=== PATIENT | female | born 1975 | race Caucasian/White ===

== ENCOUNTER 2020-01-27 14:38 | Emergency (ER) | payer OTHER ==
[~2020-01-27] VITALS: Ht 170.2 cm; Wt 93.0 kg
[~2020-01-27 14:38] MED LIST: CALC600T56 PO; CEPH250C16 PO; FERR325E14 PO; PREN-234 PO; TAM75
--- NOTE | 2020-01-27 14:52 | NUR ---
handed urine cup to pt for sample. admits to mild intermittent cramping type pain with spotting advance to vaginal bleeding
--- NOTE | 2020-01-27 15:34 | NUR ---
ULTRASOUND AT BEDSIDE
[2020-01-27 15:49] LABS: APPEARANCE,URINE CLEAR (CLEAR); BILIRUBIN,URINE NEGATIVE (NEGATIVE); BLOOD, URINE 2+ (NEGATIVE); COLOR,URINE YELLOW (YELLOW); LEUKOCYTE ESTERASE ,URINE NEGATIVE (NEGATIVE); NITRITE, URINE NEGATIVE (NEGATIVE); UGLUCOSE NEGATIVE (NEGATIVE)
[2020-01-27 15:56] LABS: RBC,URINE 11-20 (MOD) /HPF (0-5); WBC,URINE 0-5 /HPF (0-5)
[2020-01-27 16:00] LABS: BASOPHILS # (AUTO) 0.1 K/uL (0.00-0.22); BASOPHILS % (AUTO) 0.7 % (0.0-2.0); EOSINOPHILS # (AUTO) 0.2 K/uL (0-0.4); EOSINOPHILS % (AUTO) 2.1 % (0.0-4.0); HEMATOCRIT 37.9 % (36-48); HEMOGLOBIN 12.2 g/dL (12.0-16.0); LYMPHOCYTES # (AUTO) 4.2 K/uL (2.5-16.5); LYMPHOCYTES % (AUTO) 37.5 % (20.5-51.1); MEAN CORPUSCULAR HEMOGLOBIN 24 pg (27-31); MEAN CORPUSCULAR HGB CONC 32 g/dL (33-37); MEAN CORPUSCULAR VOLUME 74.8 fL (80-94); MONOCYTES # (AUTO) 0.6 K/uL (0.8-1.0); MONOCYTES % (AUTO) 5.2 % (1.7-9.3); NEUTROPHILS # (AUTO) 6.1 K/uL (1.8-7.7); NEUTROPHILS % (AUTO) 54.5 % (42.2-75.2); PLATELET COUNT (AUTO) 237 K/uL (140-450); RED BLOOD CELL COUNT(AUTO) 5.07 MIL/uL (4.20-5.40); RED CELL DISTRIBUTION WIDTH 16.4 % (11.6-13.7); WHITE BLOOD COUNT (AUTO) 11.2 K/uL (4.8-10.8)
[2020-01-27 16:16] LABS: ALBUMIN 3.5 g/dL (3.4-5.0); CARBON DIOXIDE 23.6 mmol/L (21-32); CREATININE 0.8 mg/dL (0.6-1.3); POTASSIUM 3.6 mmol/L (3.5-5.1); TOTAL BILIRUBIN 0.4 mg/dL (0.0-1.0)
[2020-01-27 17:06] VITALS: BP 127/81
--- NOTE | 2020-01-27 17:06 | NUR ---
ULTRASOUND AND LABS PRINTED FOR PT TO F/U WITH HER ASSEMBLER SEMICONDUCTOR Patient discharged with v/s stable. Written and verbal after care instructions given and explained. Patient verbalized understanding. Ambulatory with steady gait. All questions addressed prior to discharge. Advised to follow up with PMD.
== END 2020-01-27 17:06 | disposition home or self-care (01) ==
LOC: MED 14:38
DX: O20.8 Other hemorrhage in early pregnancy (principal); Z3A.09 9 weeks gestation of pregnancy; Z79.899 Other long term (current) drug therapy
CPT/HCPCS: 36415; 76801; 80053; 81001; 84702; 85025; 99284; Q0092

== ENCOUNTER 2020-01-30 08:49 | Emergency (ER) | payer OTHER ==
[~2020-01-30] VITALS: Ht 157.5 cm; Wt 102.2 kg
[2020-01-30 08:54] VITALS: BP 143/85
--- NOTE | 2020-01-30 09:41 | NUR ---
# 16 FR Pringle catheter with 10 ml utilizing sterile technique. Immediate return of 4000 ml CLEAR urine noted. LEG BAG ATTACHED. Pt tolerated procedure WELL.
--- NOTE | 2020-01-30 09:41 | NUR ---
44 Y/O FEMALE PRESENTS TO ER WITH URINARY RETENTION. PT STATES SHE IS UNABLE TO URINATE, LAST URINATION WAS 3 DAYS AGO. PT IS 9 WEEKS AND STATES THIS HAS HAPPENED BEFORE, AND AN INDWELLING CATH WAS REQUIRED. PT REPORTS PAIN AT PUBIC REGION, 10/10 CRAMPING PAIN. DENIES ANY N/V/D, FEVER, SOB.
[2020-01-30] MEDS ORDERED: DOPPLER MC ONE (09:43)
[2020-01-30 10:25] VITALS: BP 143/85
--- NOTE | 2020-01-30 10:26 | NUR ---
Patient discharged with v/s stable. Written and verbal after care instructions given and explained. Patient verbalized understanding. Ambulatory with steady gait. All questions addressed prior to discharge. Advised to follow up with PMD.
== END 2020-01-30 10:26 | disposition home or self-care (01) ==
LOC: MED 08:49
DX: R33.9 Retention of urine, unspecified (principal); Z79.899 Other long term (current) drug therapy; Z46.6 Encounter for fitting and adjustment of urinary device
CPT/HCPCS: 51702; 81002; 99284

== ENCOUNTER 2020-02-09 17:11 | Emergency (ER) | payer OTHER ==
[~2020-02-09] VITALS: Ht 157.5 cm; Wt 100.5 kg
[2020-02-09 17:14] VITALS: BP 132/73
[2020-02-09 18:16] VITALS: BP 132/73
[2020-02-09 18:46] LABS: BASOPHILS # (AUTO) 0.1 K/uL (0.00-0.22); BASOPHILS % (AUTO) 0.6 % (0.0-2.0); EOSINOPHILS # (AUTO) 0.3 K/uL (0-0.4); EOSINOPHILS % (AUTO) 2.1 % (0.0-4.0); HEMOGLOBIN 12.4 g/dL (12.0-16.0); LYMPHOCYTES # (AUTO) 4.1 K/uL (2.5-16.5); LYMPHOCYTES % (AUTO) 32.4 % (20.5-51.1); MEAN CORPUSCULAR HEMOGLOBIN 24 pg (27-31); MEAN CORPUSCULAR HGB CONC 32 g/dL (33-37); MEAN CORPUSCULAR VOLUME 75.7 fL (80-94); MONOCYTES # (AUTO) 0.7 K/uL (0.8-1.0); MONOCYTES % (AUTO) 5.6 % (1.7-9.3); NEUTROPHILS # (AUTO) 7.4 K/uL (1.8-7.7); NEUTROPHILS % (AUTO) 59.3 % (42.2-75.2); PLATELET COUNT (AUTO) 224 K/uL (140-450); RED BLOOD CELL COUNT(AUTO) 5.16 MIL/uL (4.20-5.40); RED CELL DISTRIBUTION WIDTH 16.4 % (11.6-13.7); WHITE BLOOD COUNT (AUTO) 12.5 K/uL (4.8-10.8)
[2020-02-09 18:52] LABS: APPEARANCE,URINE CLEAR (CLEAR); COLOR,URINE YELLOW (YELLOW)
[2020-02-09 18:53] LABS: BILIRUBIN,URINE NEGATIVE (NEGATIVE); BLOOD, URINE NEGATIVE (NEGATIVE); LEUKOCYTE ESTERASE ,URINE 1+ (NEGATIVE); NITRITE, URINE POSITIVE (NEGATIVE); PH,URINE 5.5 (5.0-9.0); UGLUCOSE NEGATIVE (NEGATIVE)
[2020-02-09 18:53] LABS: ANION GAP 13.8 (8-16); CARBON DIOXIDE 25.4 mmol/L (21-32); CREATININE 0.8 mg/dL (0.6-1.3); POTASSIUM 3.2 mmol/L (3.5-5.1)
[2020-02-09 19:40] LABS: RBC,URINE 0-5 /HPF (0-5)
[2020-02-09] MEDS ORDERED: POTASSIUM CHLORIDE 10 MEQ TABER PO ONE (20:00)
[2020-02-09] MEDS ORDERED: POTASSIUM CHLORIDE 10 MEQ TABER PO STA (20:05)
== END 2020-02-09 21:18 | disposition home or self-care (01) ==
LOC: MED 17:11
DX: O20.8 Other hemorrhage in early pregnancy (principal); O98.811 Other maternal infectious and parasitic diseases complicating pregnancy, first trimester; R82.71 Bacteriuria; Z3A.10 10 weeks gestation of pregnancy; Z79.899 Other long term (current) drug therapy
CPT/HCPCS: 36415; 76817; 80048; 81001; 81025; 84702; 85025; 86900; 86901; 87086; 87110; 87299; 99284; Q0092

== ENCOUNTER 2020-02-15 01:22 | Inpatient (IN) | payer OTHER ==
[~2020-02-15] VITALS: Ht 157.5 cm; Wt 100.2 kg
[2020-02-15 01:28] VITALS: BP 141/90
--- NOTE | 2020-02-15 01:40 | NUR ---
PT TAKEN TO BED 1
[2020-02-15] MEDS ORDERED: NACL 0.9% 1,000 ML IV ONE (02:06)
--- NOTE | 2020-02-15 02:15 | NUR ---
H/L EST G18 ON PT LT AC. BLD DRAWN INCLUDING 2 BLD CULTURE , LACTIC, PINK TOP AND ON PROCESS TO SENT TO THE LAB.
[2020-02-15 02:38] LABS: BASOPHILS # (AUTO) 0.1 K/uL (0.00-0.22); BASOPHILS % (AUTO) 0.5 % (0.0-2.0); EOSINOPHILS # (AUTO) 0.2 K/uL (0-0.4); EOSINOPHILS % (AUTO) 1.9 % (0.0-4.0); HEMATOCRIT 38.2 % (36-48); HEMOGLOBIN 12.2 g/dL (12.0-16.0); LYMPHOCYTES # (AUTO) 4.2 K/uL (2.5-16.5); LYMPHOCYTES % (AUTO) 34.3 % (20.5-51.1); MEAN CORPUSCULAR HEMOGLOBIN 24 pg (27-31); MEAN CORPUSCULAR HGB CONC 32 g/dL (33-37); MEAN CORPUSCULAR VOLUME 76.3 fL (80-94); MONOCYTES # (AUTO) 0.6 K/uL (0.8-1.0); MONOCYTES % (AUTO) 4.8 % (1.7-9.3); NEUTROPHILS # (AUTO) 7.2 K/uL (1.8-7.7); NEUTROPHILS % (AUTO) 58.5 % (42.2-75.2); PLATELET COUNT (AUTO) 216 K/uL (140-450); RED BLOOD CELL COUNT(AUTO) 5.01 MIL/uL (4.20-5.40); RED CELL DISTRIBUTION WIDTH 16.7 % (11.6-13.7); WHITE BLOOD COUNT (AUTO) 12.2 K/uL (4.8-10.8)
--- NOTE | 2020-02-15 02:58 | NUR ---
PT WAS SEEN A FEW DAYS AGO FOR URINARY RETENTION HAD A KEARNS CATH PLACED. SHE HAS THIS PROBLEM WITH EVERY PREG IN THE EARLY MONTHS. SHE CURRENTLY HAS TWO DIFFERENT BACTERIAL STRAINS OF UTI'S THAT REQUIRE HER TO RECIEVE IV ANITBIOTICS. SHE RETURNED TONIGHT TO BE ADMITTED TO START RECIEVING THE IV THERAPY. PT DENIES ANY VAG BLEEDING, OR FOUL ODOR. PT AFEBRILE, NO N/V/D. PT ON BEDSIDE MONITOR. BED IN LOWEST POSITION AND SIDE RAIL UP X 1. NKA
[2020-02-15 03:01] LABS: ALBUMIN 3.7 g/dL (3.4-5.0); ANION GAP 16.3 (8-16); CARBON DIOXIDE 24.1 mmol/L (21-32); CREATININE 0.8 mg/dL (0.6-1.3); POTASSIUM 3.4 mmol/L (3.5-5.1); TOTAL BILIRUBIN 0.6 mg/dL (0.0-1.0)
--- NOTE | 2020-02-15 03:06 | NUR ---
URINE COLLECTED FROM LEG BAG AND TAKEN TO LAB
--- NOTE | 2020-02-15 03:15 | NUR ---
PT UP AND AMBULATED TO RESTROOM.
[2020-02-15 03:38] LABS: APPEARANCE,URINE CLEAR (CLEAR); BILIRUBIN,URINE NEGATIVE (NEGATIVE); BLOOD, URINE NEGATIVE (NEGATIVE); LEUKOCYTE ESTERASE ,URINE 1+ (NEGATIVE); NITRITE, URINE NEGATIVE (NEGATIVE); UGLUCOSE NEGATIVE (NEGATIVE)
[2020-02-15 04:07] LABS: COLOR,URINE STRAW (YELLOW)
[2020-02-15 04:09] LABS: RBC,URINE 0-5 /HPF (0-5)
--- NOTE | 2020-02-15 05:45 | NUR ---
PT RESTING QUIETLY, NO SIGNS OF DISTRESS. RESPIRATIONS REGULAR EVEN AND UNLABORED.
--- NOTE | 2020-02-15 06:56 | NUR ---
RECEIVED REPORT FROM MARU COLON .
--- NOTE | 2020-02-15 06:56 | NUR ---
report given to Mode MAHONEY
--- NOTE | 2020-02-15 07:20 | NUR ---
PT COMFORTABLE IN BED SIDE RAILS UP X1 AND LOCK AT LOWEST POSITION.
--- NOTE | 2020-02-15 07:40 | NUR ---
LYUBOV SPOKE TO ADMITTING DR REGARDING PT DIET . PT WAS PLACE IN REGULAR DIET.
--- NOTE | 2020-02-15 08:16 | NUR ---
PT AMBULATE RESTROOM WITH STEADY GAIT.
--- NOTE | 2020-02-15 08:25 | NUR ---
PT BACK FROM RESTROOM , AMBULATED BACK TO BED WITH STEADY GAIT.
--- NOTE | 2020-02-15 09:20 | NUR ---
RECEIVED BEDSIDE REPORT FROM ER NURSE REGARDING PT CONDITION AND PLAN OF CARE. PT IS CURRENTLY STABILIZED, IN NO S/S RESPIRATORY DISTRESS, NO COMPLAINTS OF PAIN. ALERT AND ORIENTED X 4, YI SPEAKING, AMBULATORY. RESPIRATIONS EVEN AND UNLABORED. SKIN INTACT, NO CYANOSIS PALLOR OR EDEMA NOTED, CAP REFILL < 3 SECONDS. S1S2 HEART SOUNDS AUSCULTATED. ABDOMEN IS ROUNDED PATIENT IS AOG 11 WEEKS. PATIENT HAS KEARNS CATHETER ATTACHED TO LEG BAG , SHE DRAINS HER LEG BAG HERSELF IN THE RESTROOM. VITAL SIGNS STABLE. ALL NEEDS MET, CALL LIGHT WITHIN REACH , WILL CONTINUE TO MONITOR.
--- NOTE | 2020-02-15 09:20 | NUR ---
Patient will be admitted to care of Dr arciniega. Admited to M/S. Will go to room 104B. Belongings list completed. Report to nury Fletcher.
--- NOTE | 2020-02-15 11:30 | NUR ---
ROUNDED ON PATIENT, PT IS STABILIZED, HAS NO NEEDS AT THIS TIME. PT IN NO S/S RESPIRATORY DISTRESS, DENIES ANY PAIN. ALL NEEDS MET, CALL LIGHT WITHIN REACH, WILL CONTINUE TO MONITOR.
[2020-02-15 12:00] VITALS: BP 112/61
--- NOTE | 2020-02-15 12:00 | NUR ---
UPON PATIENT ROUNDS, PATIENT SITTING UP IN BED, ALERT ORIENTED, IN NO S/S RESPIRATORY DISTRESS, NO COMPLAINTS OF PAIN. VITAL SIGNS STABLE. EATING LUNCH. ALL NEEDS MET, CALL LIGHT WITHIN REACH, WILL CONTINUE TO MONITOR.
--- NOTE | 2020-02-15 12:59 | NUR ---
SPOKE WITH LAB, THEY STATE THAT THE PATIENTS URINE CULTURE HAD ALREADY BEEN SUBMITTED AND IS BEING SENT TO [facility] AT THE MOMENT. NOTED AND WILL CONTINUE TO MONITOR PATIENT.
--- NOTE | 2020-02-15 15:55 | NUR ---
DR MEDRANO IN GAVE VERBAL ORDERS FOR ULTRASOUND OF ABDOMEN AND ALSO CONSULTS FOR DR STORY AND DR TAMICA JENKINS. HE STATES HE WILL PERSONALLY TALK TO THE DOCTORS. ORDERS NOTED AND CARRIED OUT. Addendum: 02/15/20 at 1600 by Chance Owens RN CORRECTION: US < 14 WEEKS
[2020-02-15 16:00] VITALS: BP 99/53
--- NOTE | 2020-02-15 16:16 | NUR ---
RACK PUNCHER CURRENTLY IN ROOM
--- NOTE | 2020-02-15 17:26 | NUR ---
ROUNDED ON PATIENT, REFILLED WATER. PER PATIENT REQUEST, CHANGED KEARNS CATHETER LEG BAG TO LARGER DRAINAGE BAG. GAVE INSTRUCTIONS TO ALWAYS LEAVE BELOW LEVEL OF BLADDER, TO NOT LET THERE BE ANY KINKS AND THAT THE URINE MUST ALWAYS BE DRAINING AND NOT STUCK IN TUBING. PATIENT VERBALIZED UNDERSTANDING. WILL CONTINUE TO MONITOR. ALL NEEDS MET, CALL LIGHT WITHIN REACH.
--- NOTE | 2020-02-15 19:10 | NUR ---
GAVE BEDSIDE REPORT REGARDING PT CONDITION AND PLAN OF CARE. PT IS STABILIZED RESTING COMFORTABLY IN BED, IN NO S/S RESPIRATORY DISTRESS, DENIES PAIN. ENDORSED TO SERVICE DEPARTMENT MANAGER NURSE REGARDING KEARNS CATHETER . VERBALIZED UNDERSTANDING
--- NOTE | 2020-02-15 19:30 | NUR ---
RECEIVED REPORT FROM DAY RN REGARDING THE PT FOR CONTINUITY OF CARE. PATIENT SITTING UPRIGHT ON THE BED WATCHING TV. PT DENIES ANY CHEST PAIN, SOB, NUMBNESS AND TINGLING IN ALL EXTREMITIES. NOTED PATIENT HAS LEFT FACIAL DROOP. SPEECH IS CLEAR. ABLE TO MOVE ALL EXTREMITIES AND ABLE TO AMBULATE WITH STANDBY ASSIST ONLY. NO COMPLAIN AT THIS TIME. NO SIGN AND SYMPTOMS OF DISTRESS NOTED. FALL PRECAUTION IMPLEMENTED. INSTRUCTED TO CALL FOR ASSISTANCE AT ALL TIMES. CALL LIGHT WITHIN REACH. WILL CONTINUE POC.
--- NOTE | 2020-02-15 20:00 | NUR ---
RECEIVED THE REPORT FROM THE DAY RN REGARDING THE PT FOR CONTINUITY OF CARE. PATIENT WAS SITTING ON THE CHAIR AND STATED THAT HER KEARNS CATHETER FEELS LIKE ITS SLIPPING OUT. THE DAY RN TO INFLATED THE KEARNS BALLOON WITH 5 CC NS. INSTRUCTED THE PT TO CALL RN IF SHE FEELS THAT HER KEARNS CATHETER STILL FEELS LIKE SLIPPING OUT. OTHERWISE NO OTHER COMPLAIN AT THIS TIME. DENIES ANY PAIN. NO SIGN AND SYMPTOMS OF DISTRESS NOTED. CALL LIGHT WITHIN REACH. WILL CONTINUE POC. Addendum: 02/15/20 at 2316 by Shayy Coronado RN RN WRONG PATIENT ENTRY
--- NOTE | 2020-02-15 21:00 | NUR ---
ENDORSED THE PATIENT TO MARU JERNIGAN FOR CONTINUITY OF CARE. PATIENT STABLE. LAYING IN BED WATCHING TV. BED IN LOW POSITION.CALL LIGHT WITHIN REACH. SIGNING OFF. Addendum: 02/15/20 at 2314 by Shayy Coronado RN RN WRONG PATIENT ENTRY
--- NOTE | 2020-02-15 22:37 | NUR ---
DISCONTINUED KEARNS CATHETER ORDERED. INSTRUCTED THE PATIENT TO CALL IF SHE HAS THE URGE TO URINATE AND IF SHE FEELS LIKE HER BLADDER IS FULL SO WE CAN DO THE STRAIGHT CATHETER. PATIENT WAS NOTIFIED EARLIER THAT MD ORDERED TO DO INTERMITTENT STRAIGHT CATHETERIZATION Q6 HOURS AND TO TEACH THE PATIENT HOW TO DO SELF CATHETERIZATION. PATIENT VERBALIZED THAT SHE WILL TRY TO URINATE ON HER OWN FIRST AND SHE WILL CALL IF SHE CAN'T VOID ON HER OWN TO DO THE STRAIGHT CATHETERIZATION. CALL LIGHT WITHIN REACH.
[2020-02-16] VITALS: BP 131/70
--- NOTE | 2020-02-16 | NUR ---
PT VERBALIZED THAT SHE URINATED TWICE AFTER THE KEARNS WAS DISCONTINUED. INSTRUCTED THE PATIENT TO SAVE THE URINE EVERY TIME SHE URINATE. PLACED A WHITE HAT IN THE TOILET. PT VERBALIZED UNDERSTANDING.
--- NOTE | 2020-02-16 02:00 | NUR ---
PATIENT CALLED IN THE ROOM AND STATED THAT SHE FEELS THAT HER BLADDER IS FULL AND AGREED TO DO THE STRAIGHT CATHETERIZATION. PT MADE AWARE THAT I HAVE TO EDUCATE HER ON HOW TO DO IT ON HER OWN ONCE SHE GOES HOME. VERBAL EDUCATION GIVEN 1ST AND SHOWED STEP BY STEP WHAT WE ARE GOING TO DO. PATIENT VERBALIZED THAT ITS GOING TO BE HARD FOR HER TO DO IT ON HER OWN AND STATED THAT HER ALSO IS NOT AVAILABLE TO DO IT BECAUSE HE GOES TO WORK @ 5AM AND COME HOME AROUND7 PM. PT IS ALSO CONCERNED ABOUT DOING THE CATHETERIZATION Q6 HOURS BECAUSE SHE STATED THAT SHE HAS TO VOID ALMOST EVERY 30 MINUTES TO AN HOUR AND SHE DOESN'T THINK SHE CAN WAIT FOR 6 HOURS TO DO THE CATHETERIZATION. PT IS ALSO WORRIED THAT SHE IS MORE PRONE TO INFECTION DOING THE CATHETERIZATION EVERY HOUR AND RATHER HAVE A KEARNS CATHETER PUT IN AND HAVE IT CHANGE EVERY 2 WEEKS IN HER DOCTORS OFFICE. WILL RELAY THE MESSAGE TO DR STORY AND THE PRIMARY TEAM.
--- NOTE | 2020-02-16 02:10 | NUR ---
ADDENDUM: PATIENT PUT OUT 1500 CC ON THE 1ST STRAIGHT CATHETERIZATION.
--- NOTE | 2020-02-16 03:30 | NUR ---
PATIENT CALLED IN THE ROOM AND STATED THAT SHE URINATED TWICE AFTER THE STRAIGHT CATHETERIZATION 1ST ONE IS 1000 CC ,THE 2ND VOID IS 800CC AND 3RD VOID IS 500CC. PT IS HOPEFUL THAT SHE WILL CONTINUE TO VOID ON HER OWN TO AVOID CATHETERIZATION.
--- NOTE | 2020-02-16 05:42 | NUR ---
PATIENT STABLE. NO ACUTE EVENTS OVERNIGHT. NO SIGN AND SYMPTOMS OF DISTRESS NOTED. NO COMPLAIN AT THIS TIME. ALL NEEDS ATTENDED. CALL LIGHT WITHIN REACH. WILL ENDORSE THE PT TO THE ONCOMING RN FOR CONTINUITY OF CARE.
--- NOTE | 2020-02-16 07:30 | NUR ---
RECEIVED BEDSIDE REPORT FROM POPULATION GENETICIST NURSE REGARDING PATIENT CONDITION AND PLAN OF CARE. PATIENT IS IN STABLE CONDITION. AOX4, IN NO S/S RESPIRATORY DISTRESS, HAS JUST VOIDED IN THE RESTROOM. PATIENT SKIN INTACT, NO CYANOSIS, PALLOR, OR EDEMA NOTED. ALL NEEDS MET, CALL LIGHT WITHIN REACH, WILL CONTINUE WITH PLAN OF CARE
[2020-02-16 08:00] VITALS: BP 111/72
--- NOTE | 2020-02-16 08:06 | NUR ---
PATIENT STABLE. ENDORSED THE PT TO THE DAY RN FOR CONTINUITY OF CARE.BED IN LOW POSITION. SIGNING OFF.
--- NOTE | 2020-02-16 09:16 | NUR ---
PATIENT HAS BEEN SCREENED AND CATEGORIZED LOW NUTRITION RISK. PATIENT WILL BE SEEN WITHIN 7 DAYS OF ADMISSION. 02/21/[address]
--- NOTE | 2020-02-16 10:22 | NUR ---
PT COMPLAINS OF "FULLNESS OF BLADDER" AND HAS NOT BEEN ABLE TO URINATE . ATTEMPTED TO STRAIGHT CATHETERIZE PATIENT. STERILE PROCEDURE FOLLOWED. 3 CATHETERIZATION ATTEMPTS WITH 3 DIFFERENT 14 FR CATHETERS, STILL UNSUCCESSFUL. NO URINE OUTPUT. WILL ADVOCATE TO DR. STORY REGARDING PT DIFFICULT CATHETERIZATION. AFTER THE ATTEMPTS, PATIENT ACTUALLY URINATED IN RESTROOM OUTPUT ABOUT 500 ML. ALL NEEDS MET, CALL LIGHT WITHIN REACH, WILL CONTINUE TO MONITOR.
--- NOTE | 2020-02-16 12:30 | NUR ---
ROUNDED ON PATIENT, PATIENT REALLY BELIEVES THAT SHE WILL BE UNABLE TO DO HER OWN STRAIGHT CATHETERIZATION AFTER WATCHING SEVERAL NURSES YESTERDAY AND TODAY HAVE DIFFICULTY WITH PUTTING IN CATHETER. TRIED TO ENCOURAGE PATIENT BUT PATIENT IS SURE. WILL ENDORSE TO DR. STORY WHEN HE IS IN UNIT. WATER REFILLED. ALL NEEDS MET, CALL LIGHT WITHIN REACH, WILL CONTINUE TO MONITOR.
--- NOTE | 2020-02-16 13:27 | NUR ---
FORTAZ GIVEN, NO ADVERSE REACTION NOTED. PT IS STABLE. ALL NEEDS MET, CALL LIGHT WITHIN REACH, WILL CONTINUE TO MONITOR.
--- NOTE | 2020-02-16 15:30 | NUR ---
ROUNDED ON PATIENT, PT HAS BEEN URINATED FREQUENTLY AND LARGE AMOUNTS. STATES SHE HAS EMPTIED ABOUT 4L SO FAR. WILL CONTINUE TO MONITOR. ALL NEEDS MET, CALL LIGHT WITHIN REACH, WILL CONTINUE TO MONITOR.
[2020-02-16 16:00] VITALS: BP 98/51
--- NOTE | 2020-02-16 19:00 | NUR ---
RECEIVED BEDSIDE REPORT FROM AM SHIFT NURSE REGARDING PATIENT CONDITION AND PLAN OF CARE. AOX4, PREVIOUS SHIFT DRAINING THROUGH INTERMITTENT CATHETER RIGHT NOW. NO S/S RESPIRATORY DISTRESS, PATIENT SKIN INTACT, NO CYANOSIS, PALLOR, OR EDEMA NOTED. ALL NEEDS MET, CALL LIGHT WITHIN REACH, WILL CONTINUE WITH PLAN OF CARE
--- NOTE | 2020-02-16 20:02 | NUR ---
PATIENT REQUESTED STRAIGHT CATHETERIZATION, 2L OUTPUT. PATIENT TOLERATED WELL. STERILE PROCEDURE FOLLOWED. BEDSIDE REPORT GIVEN TO OFFICE INSPECTOR NURSE MADE AWARE REGARDING PATIENT PLAN OF CARE. ALL NEEDS MET, CALL LIGHT WITHIN REACH.
--- NOTE | 2020-02-16 22:00 | NUR ---
TALKED TO DR. MEDRANO, TOLD HIM THAT PT HAS VAGINAL BLEEDING RIGHT NOW, MODERATE DARK RED BLEEDING. I INFORMED HIM THAT PT IS HAVING MAXIMAL OUTPUT W/ THE INTERMITTENT CATHERIZATION, AT THIS TIME 1500 ML TOTAL
--- NOTE | 2020-02-16 23:35 | NUR ---
CALLED DR. STORY, UROLOGIST- INFORMED HIM THAT PATIENT HAS A TOTAL OF 3000 ML PER MEASUREMENT W/ THE PATIENT MY WITNESS TO THE LEVEL OF URINE DRAINED. PER DOCTOR THAT IS NOT POSSIBLE THAT I GOT 3000 ML. HE SAID THAT WE SHOULD RECORD THE OUTPUT EVERY TIME WITH DRAIN, AND NO KEARNS CATHETER INSERTION FOR NOW. CARRIED OUT 'S ORDERS.
--- NOTE | 2020-02-16 23:40 | NUR ---
OB ULTRASOUND FOR VAGINAL BLEEDINGAT BEDSIDE WITH DR. MEDRANO ALSO AT BEDSIDE, WATCHING THE OB ULTRASOUND DONE. HE SAID TO ORDER KEARNS CATHETER INSERTION
[2020-02-17] VITALS: BP 120/80
--- NOTE | 2020-02-17 | NUR ---
ORDERED PICC LINNE INSERTION AND HOME HEALTH -FOR IV ADMINISTRATION AND KEARNS CATHETER CARE AT HOME
--- NOTE | 2020-02-17 00:10 | NUR ---
DR. MEDRANO CAME TO HOSPITAL, MADE ROUNDS TO PATIENTS, HE PLACED A KEARNS CATHETER ( WITH HIS ORDERED TO PLACE ONE). PT HAS VAGINAL BLEEDING AND HE ORDERED A KEARNS CATHETER TO BE INSERTED.
--- NOTE | 2020-02-17 00:16 | NUR ---
DR. MEDRANO VAGINAL/ PELVIC EXAM DONE USING VAGINAL SPECULUM.
--- NOTE | 2020-02-17 00:23 | NUR ---
LEFT MESSAGE FOR PICC LINE NURSE [phone] THAT PT NEEDS PICC LINE.
--- NOTE | 2020-02-17 00:29 | NUR ---
TO [facility]: HOME HEALTH FOR PATIENT FOR KEARNS CATHETER CARE AND IV ANTIBIOTIC ADMINISTRATION.
--- NOTE | 2020-02-17 05:00 | NUR ---
PT STILL SLEEPING WILL TRY LATER, FOR PICC LINE INSERTION CONSENT NEEDS TO SIGNED
[2020-02-17 06:00] VITALS: BP 121/70
--- NOTE | 2020-02-17 06:46 | NUR ---
AA, O X 4, PT W/ KEARNS CATHETER , DRAINING MAX OUTPUT TOTAL OF 6. 5 ML. RECORDED IN A PIECE OF PAPER THE URINE OUTPUT FOR THE WHOLE SHIFT.
--- NOTE | 2020-02-17 07:32 | NUR ---
RECEIVED REPORT FROM NIGHT RN. PT A/OX4. SINUS RHYTHM. LUNGS CTA BILAT. ON ROOM AIR. KEARNS CATHETER INSERTED 02/16 DURING WELLNESS PROGRAM ADMINISTRATOR, CLEAN DRY AND INTACT, FREE OF DEPENDENT LOOPS. 20G IV IN L AC, CLEAN DRY AND INTACT. NO ACUTE DISTRESS NOTED. SAFETY PRECAUTIONS IN PLACE. BED IN LOW POSITION, CALL LIGHT IN REACH. WILL CONTINUE TO MONITOR.
--- NOTE | 2020-02-17 08:49 | NUR ---
PT'S VAGINAL BLEEDING STOPPED. KEARNS CATHETER DRAINING CLEAR URINE IN MODERATE AMOUNTS. PER DR. MEDRANO, NO NEED FOR BLOOD WORK FOR TODAY.
--- NOTE | 2020-02-17 09:14 | NUR ---
RECEIVED ORDER FOR HOME HEALTH. FAXED PATIENTS CLINICALS TO [facility] AND [facility]. WILL FAX TO [facility] ONCE WE RECEIVE ORDER FOR WHAT ABX PATIENT NEEDS. Addendum: 02/17/20 at 1153 by Sonia Ibarra DC PLAN DISCUSSED WITH THE PATIENT HERSELF AND IS IN AGREEMENT. SHE STATED THAT HER SON'S GIRLFRIEND IS TEACHABLE TO ADMINISTER IV ANTIBIOTICS. SHE STATED SHE DOES NOT HAVE ANY PREFERENCE FOR HOME HEALTH, WHOEVER WE WILL FIND. Addendum: 02/17/20 at 1213 by Sonia Ibarra RECEIVED A CALL FROM [facility]. [facility] PHYSICIAN FOR DR. MEDRANO STATING THAT THEY WANT TO CONTINUE CEFTAZIDIME 1000 MG Q8H X 8 MORE DAYS. CLARIFIED ORDER IF SHE NEEDS US TO WAIT FOR ID RECOMMENDATIONS OR TO GO AHEAD WITH CEFTAZIDIME. SHE STATED SHE ALREADY GOT THE RECOMMENDATIONS OVER THE PHONE. SHE STATED PATIENT IS SENSITIVE WITH CEFTAZIDIME AND MEROPENEM, HOWEVER THEY ARE SAVING MEROPENEM FOR MORE STRONGER INFECTION AND PATIENT CAN BE STARTED WITH CEFTAZIDIME AND WHATEVER INSURANCE COVERS. INFORMED HER THAT I SPOKE TO THE PATIENT AND A FAMILY MEMBER IS WILLING TO BE TAIGHT TO ADMINISTER THE ANTIBIOTIC IN BETWEEN. DISCHARGE PLANNING: THIS IS A 44 YO FEMALE PATIENT FROM HOME, WHO CAME IN DUE TO URINARY RETENTION. INITIAL DIAGNOSIS OF UTI/1ST TRIMESTER . CURRENT LABS INCLUDE WBC 12.2, H/H 12.2/38.2, NA/K 140/3.4, BUN/CREA 6/0.8. ON CEFTAZIDIME. ID CONSULT IN PLACE. DC PLAN BACK TO HOME ONCE STABLE. Addendum: 02/17/20 at 1226 by Elina Snider CM FOLLOWED UP WITH [facility] AND SPOKE WITH [facility], UNFORTUNATELY THEY DO NOT ACCEPT PATIENTS INSURANCE. FAXED CLINICALS TO [facility] [phone] FAX [phone]. Addendum: 02/17/20 at 1328 by Sonia Ibarra A CALL TRANSFERRED FROM [facility] FROM [facility], SHE IS INQUIRING IF IT IS OK WITH THE DOCTOR TO MISS 2 DOSES OF ANTIBIOTICS SINCE THEIR NURSE WILL NOT BE AVAILABLE UNTIL TOMORROW AFTERNOON. INFORMED HER THAT I WILL REACH OUT TO THE [facility] AND WILL CALL HER BACK. CONTACTED [facility] AT [phone] OPT 3. PER REY[facility] TO GO AHEAD AND SEND REFERRAL TO [phone]. REFERRAL SENT. WILL FOLLOW UP. Addendum: 02/17/20 at 1422 by Elina Snider CM [facility] [phone] AND SPOKE WITH ARANZA THEY HAVE RECEIVED CLINICALS FOR PATIENTS. ARANZA STATED THAT THEY ALSO SENT A REFERRAL TO [facility]. THE HOME HEALTH WILL SEND A NURSE OUT ON DAY ONE TO TEACH THE PATIENT/FAMILY HOW TO ADMINISTER THE ABX AND THEN FOLLOW UP ONE MORE TIME TO CLEAN AND CHANGE THE DRESSINGS. ARANZA WILL FOLLOW UP Addendum: 02/17/20 at 1640 by Sonia Ibarra [facility] FOR KEARNS CARE AND [facility] FOR IV INFUSION. Addendum: 02/17/20 at 1659 by Sonia Ibarra LATE ENTRY FOR 1420: MADE A PHONE CALL TO DR. RAJI FELIX PHYSICIAN FOR DR. MEDRANO TO INFORM HER THAT INFUSION IS NOT ABLE TO STAFF PATIENT UNTIL TOMORROW AFTERNOON AND WILL BE MISSING 2 DOSES OF ANTIBIOTIC. I ALSO INFORMED HER THAT WE SENT IT TO ANOTHER INFUSION COMPANY AND JUST WAITING FOR THEIR RESPONSE. I ALSO INFORMED HER THAT I SPOKE LEONIDEliazar WEBB OF PHARMACY ASKING IF WE CAN GIVE THE 2100 DOSE EARLIER. PER [facility] PHARMACIST OK TO GIVE AT LEAST 6 HOURS FROM THE LAST DOSE. PER DR. RAJI FELIX PHYSICIAN FOR DR. MEDRANO, "IT IS OK". PRIMARY RN MADE AWARE. CHARLIE OF [facility] MADE AWARE. MAJOR GUERRA WILL SEND NURSE AT [phone] TOMORROW. [facility], WILL SEND NURSE TOMORROW AT 0900. [facility] WILL DELIVER MEDS TODAY PER [facility]. PATIENT AND PRIMARY RN MADE AWARE. Addendum: 02/17/20 at 1708 by Elian Snider CM IV ABX AND HOME HEALTH WITH [facility] JOSE IS SET UP CONFIRMED WITH [facility]
--- NOTE | 2020-02-17 09:16 | NUR ---
PICC LINE NURSE JESSICA AT BEDSIDE.
--- NOTE | 2020-02-17 09:34 | NUR ---
CHEST XRAY ORDERED FOR PICC LINE PLACEMENT.
--- NOTE | 2020-02-17 09:41 | NUR ---
XRAY AT BEDSIDE
--- NOTE | 2020-02-17 10:25 | NUR ---
SPOKE TO DR. MEDRANO'S RESIDENT DOCTOR, SHE STATED SHE WILL PUT IN THE ORDER FOR PICC OK TO USE.
[2020-02-17] MEDS ORDERED: DESMOPRESSIN 4 MCG/ML AMP SUBQ SCH (10:30)
--- NOTE | 2020-02-17 11:13 | NUR ---
COMMUNITY SERVICES OFFICER NOTE: Patient's Orientation Unable To Assess Information Provided By SAMIR ANAYA - SIGNIFICANT OTHER Comments SW SPOKE WITH DAVIDSONJASMINEliazar ANAYA [phone] USING BODY SERVICE TEAM MEMBER MARICRUZ [id number]. Gas Fitter Helper, Realtionship and Phone Number SAMIR ANAYA SIGNIFICANT OTHER [phone] Healthcare Power of Manager Acute No Does Patient Have a POLST No Identifying Problems No Social Work Triggers Is A Social Work Consult Needed No Mandate Report Filed No Explanation Of Identifying Problems PATIENT IS A 44-YEAR-OLD FEMALE ADMITTED FOR UTI AND 1ST TRIMESTER . PATIENT HAS NO PERTINENT PMHX. Admitted From Home Pre-Admission Level Of Functioning Status Independent/Ambulatory Prior Resources/Services Used In Last 12 Months No Prior Resources Used Prior DME No Prior DME Used Living Situation Lives With Family House Patient Had Caregiver No Home Support No Caregiver Issues Financial Issues No Known Financial Issue Referral To The Financial Counselor Needed No Factors/Needs No D/C Needs Identified Pt/Rep Participated In Discharge Plan Yes Patient/Family Agress With Discharge Plan Yes Discharge Plan Comments TENTATIVE DISCHARGE PLAN IS FOR PATIENT TO RETURN HOME. DC Plan Status Initiated
--- NOTE | 2020-02-17 12:02 | NUR ---
CLARIFIED WITH DR. MEDRANO ORDERED DESMOPRESSIN. GIVE IT NOW. WILL CARRY ORDER
--- NOTE | 2020-02-17 12:34 | NUR ---
HUNG CEFTAZIDIME IVPB @ 100MLS/HR. PT SITTING IN BED EATING LUNCH. NO ACUTE DISTRESS NOTED. WILL CONTINUE TO MONITOR.
--- NOTE | 2020-02-17 13:25 | NUR ---
PER DENISSE LENTZ, WAIT FOR HOME HEALTH TO BE SET UP BEFORE DISCHARGING PATIENT. WILL CARRY OUT ORDER. PATIENT MADE AWARE
--- NOTE | 2020-02-17 14:13 | NUR ---
PT SITTING AT BEDSIDE WATCHING TV. NO ACUTE DISTRESS NOTED.
--- NOTE | 2020-02-17 15:10 | NUR ---
PT PREFERRED PHARMACY: [facility] ADDRESS: [phone] [place] [address]
[2020-02-17] MEDS ORDERED: [UNRECOGNIZED DRUG - CODE] NS (15:17)
[2020-02-17] MEDS ORDERED: CEFT1PDS83 IV (15:21)
[2020-02-17 16:01] VITALS: BP 113/61
[2020-02-17 16:33] VITALS: BP 115/62
--- NOTE | 2020-02-17 16:33 | NUR ---
INFORMED PATIENT THAT PREFERRED PHARMACY WILL BE HANGING HER IV ANTIBIOTIC AT HOME AND KEARNS CARE WILL BE [facility]. ALSO EXPLAINED THAT WE WILL GIVE THE NEXT DOSE OF ANTIBIOTIC HERE AROUND 1900, THEN SHE CAN BE DISCHARGE. PATIENT MADE AWARE. PATIENT VERBALIZED UNDERSTANDING
--- NOTE | 2020-02-17 16:53 | NUR ---
CONFIRMED WITH PHARMACIST THAT IT'S OKAY TO GIVE FORTAZ AT 1900 EVEN THOUGH IT IS SCHEDULED AT 2100. AFTER THIS DOSE, PATIENT CAN GO HOME FOR DISCHARGE.
--- NOTE | 2020-02-17 17:36 | NUR ---
PT SITTING AT BEDSIDE WATCHING. NO ACUTE DISTRESS NOTED.
--- NOTE | 2020-02-17 19:07 | NUR ---
HUNG CEFTAZIDIME IVPB @ 100ML/HR.
--- NOTE | 2020-02-17 19:24 | NUR ---
ENDORSED PT TO NIGHT RN FOR CONTINUITY OF CARE. PT IN STABLE CONDITION
--- NOTE | 2020-02-17 19:25 | NUR ---
RECEIVED REPORT FROM AM SHIFT, RN. PT AAO X4. PT BEDREST FOR NOW, BUT ABLE TO AMBULATE. ON ROOM AIR. WITH KEARNS CATHETER INSERTED , CLEAN DRY AND INTACT, PATENT. WITH 20G IV IN L AC, CLEAN DRY AND INTACT. WITH PICC LINE ON THE RIGHT UPPER ARM, DOUBLE LUMEN. NO ACUTE DISTRESS NOTED. SAFETY PRECAUTIONS IN PLACE. BED IN LOW POSITION, CALL LIGHT IN REACH. WILL CONTINUE TO MONITOR.
[2020-02-17 20:00] VITALS: BP 127/80
--- NOTE | 2020-02-17 20:00 | NUR ---
PATIENT'S PREPARED FOR DISCHARGE, PT. CHANGED HER CLOTHES. DOCUMENTS WITH HER. PT CALLING HIS TO PICK HIM UP.
--- NOTE | 2020-02-17 20:30 | NUR ---
DISCONTINUED IV SITE ON THE RIGHT AC, LEFT THE PICCLINE ON THE LEFT UPPER ARM FOR IV ANTIBIOTICS FOR HOME HEALTH USE, PT'S KEARNS CATHETER LEFT ALSO FOR HOME HEALTH USE AND CARE.
--- NOTE | 2020-02-17 21:00 | NUR ---
PT LEFT THE UNIT, AND WAS ESCORTED TO EXIT AREA, PT WAS PICKED UP BY
--- NOTE | 2020-02-18 19:27 | NUR ---
LATE ENTRY - END TIME FOR NS BOLUS 0320, START TIME WAS 0238 END TIME FOR CEFTAZIDIME 0304, START TIME WAS 0236
== END 2020-02-17 21:00 | disposition home health service (06) | DRG 566 ==
LOC: MED 01:22 → MMU 07:43 → MTU 08:57
PROVIDERS: ADMIT Obstetrics & Gynecology; ATTEND Obstetrics & Gynecology
PROC: 02HV33Z Insertion of Infusion Device into Superior Vena Cava, Percutaneous Approach (ICD-10-PCS; principal; 2020-02-17)
PROC: B548ZZA Ultrasonography of Superior Vena Cava, Guidance (ICD-10-PCS; 2020-02-17)
DX: O23.41 Unspecified infection of urinary tract in pregnancy, first trimester (principal); E87.6 Hypokalemia; Z3A.11 11 weeks gestation of pregnancy; O99.281 Endocrine, nutritional and metabolic diseases complicating pregnancy, first trimester; B96.5 Pseudomonas (aeruginosa) (mallei) (pseudomallei) as the cause of diseases classified elsewhere; B96.1 Klebsiella pneumoniae [K. pneumoniae] as the cause of diseases classified elsewhere; R33.9 Retention of urine, unspecified
CPT/HCPCS: 36415; 71045; 76770; 76801; 80053; 81001; 83605; 85025; 87040; 87081; 87086; 87186; 96365; 99285; C1751; C1758; J0713; J2597; J7060; Q0092

== ENCOUNTER 2020-03-08 19:07 | Emergency (ER) | payer OTHER ==
[~2020-03-08] VITALS: Ht 157.5 cm; Wt 100.2 kg
[~2020-03-08 19:07] MED LIST changes: +CEFT1PDS83 IV; -CEPH250C16 PO; -TAM75; +[UNRECOGNIZED DRUG - CODE] NS
[2020-03-08 19:24] VITALS: BP 120/69
[2020-03-08 20:28] LABS: APPEARANCE,URINE CLEAR (CLEAR); BILIRUBIN,URINE NEGATIVE (NEGATIVE); BLOOD, URINE NEGATIVE (NEGATIVE); COLOR,URINE YELLOW (YELLOW); LEUKOCYTE ESTERASE ,URINE TRACE (NEGATIVE); NITRITE, URINE NEGATIVE (NEGATIVE); UGLUCOSE NEGATIVE (NEGATIVE)
[2020-03-08 20:34] LABS: RBC,URINE 0-5 /HPF (0-5)
[2020-03-08 20:46] VITALS: BP 120/69
== END 2020-03-08 20:46 | disposition home or self-care (01) ==
LOC: MED 19:07
DX: O26.892 Other specified pregnancy related conditions, second trimester (principal); R33.8 Other retention of urine; E11.9 Type 2 diabetes mellitus without complications; Z79.899 Other long term (current) drug therapy
CPT/HCPCS: 51702; 81001; 99284

== ENCOUNTER 2020-04-13 00:30 | Emergency (ER) | payer OTHER ==
[~2020-04-13] VITALS: Ht 157.5 cm; Wt 101.6 kg
[2020-04-13 00:40] VITALS: BP 140/86
--- NOTE | 2020-04-13 00:40 | NUR ---
To ED bed 05
--- NOTE | 2020-04-13 00:41 | NUR ---
44 Y/O FEMALE PRESENTED TO ED C/O SUPRPUBIC ABD CRAMPING 5/10 PAIN X 3 HR. PT HAD A 20 WEEK , A3. PT DURING HAD INDWELLING CATH PLACED, D/C CATH X 2 WEEKS. PT CURRENTLY + URGENCY, DYSURIA , RETENTION. PT STATES IT FEELS LIKE A PRESSURE ON ABD. PT STATES PRESSURE WAS MINIMALLY RELIEVED AFTER SHE USED RESTROOM AND PASSED A LARGE CLOT W/ SMALL AMOUNT OF URINE. ABD ROUND, SOFT AND NON TENDER. PT STATES ABD CRAMPING HAS BEEN OCCURING SINCE DELIVERY. PT RESTING IN BED, LOCKED AND IN LOWEST POSITION, HOB ELEVATED, SIDE RAIL X1. PT GIVEN URINE CUP FOR ENCOURAGEMENT FOR URINE SAMPLE. VSS. NO ACUTE DISTRESS NOTED AT THIS TIME. PMH: GESTATIONAL DM NKA
--- NOTE | 2020-04-13 00:50 | NUR ---
KLAUDIA BLISS AT BEDSIDE FOR MEDICAL EVALUATION.
--- NOTE | 2020-04-13 01:13 | NUR ---
PT AMBULATED FROM RESTROOM W/ STEADY GAIT.
--- NOTE | 2020-04-13 01:41 | NUR ---
URINE SAMPLE COLLECTED AND HANDED TO SAMANTHA WASHINGTON TECH.
[2020-04-13 01:45] LABS: APPEARANCE,URINE CLEAR (CLEAR); BILIRUBIN,URINE NEGATIVE (NEGATIVE); BLOOD, URINE NEGATIVE (NEGATIVE); COLOR,URINE YELLOW (YELLOW); LEUKOCYTE ESTERASE ,URINE NEGATIVE (NEGATIVE); NITRITE, URINE NEGATIVE (NEGATIVE); PH,URINE 5.5 (5.0-9.0); UGLUCOSE NEGATIVE (NEGATIVE)
[2020-04-13 01:55] LABS: RBC,URINE 0-5 /HPF (0-5); WBC,URINE 0-5 /HPF (0-5)
--- NOTE | 2020-04-13 02:00 | NUR ---
Pringle catheter inserted via sterile technique, 16 setswana, clear yellow urine flow received, pt tolerated well.
[2020-04-13 02:04] LABS: BASOPHILS # (AUTO) 0.1 K/uL (0.00-0.22); BASOPHILS % (AUTO) 0.6 % (0.0-2.0); EOSINOPHILS # (AUTO) 0.2 K/uL (0-0.4); HEMATOCRIT 31.8 % (36-48); HEMOGLOBIN 10.3 g/dL (12.0-16.0); LYMPHOCYTES # (AUTO) 3.9 K/uL (2.5-16.5); LYMPHOCYTES % (AUTO) 33.4 % (20.5-51.1); MEAN CORPUSCULAR HEMOGLOBIN 25 pg (27-31); MEAN CORPUSCULAR HGB CONC 32 g/dL (33-37); MEAN CORPUSCULAR VOLUME 75.4 fL (80-94); MONOCYTES # (AUTO) 0.8 K/uL (0.8-1.0); NEUTROPHILS # (AUTO) 6.6 K/uL (1.8-7.7); PLATELET COUNT (AUTO) 234 K/uL (140-450); RED BLOOD CELL COUNT(AUTO) 4.21 MIL/uL (4.20-5.40); RED CELL DISTRIBUTION WIDTH 14.7 % (11.6-13.7); WHITE BLOOD COUNT (AUTO) 11.7 K/uL (4.8-10.8)
--- NOTE | 2020-04-13 02:15 | NUR ---
PER GI TECHNICIAN , [employer] WAS CALLED 20 MIN AGO, ETA SHOULD BE IN NEXT 20 MINS.
[2020-04-13 02:21] LABS: ALBUMIN 2.8 g/dL (3.4-5.0); ANION GAP 14.4 (8-16); CARBON DIOXIDE 25.2 mmol/L (21-32); CREATININE 0.7 mg/dL (0.6-1.3); POTASSIUM 3.6 mmol/L (3.5-5.1); TOTAL BILIRUBIN 0.2 mg/dL (0.0-1.0)
--- NOTE | 2020-04-13 02:32 | NUR ---
ULTRASOUND AT BEDSIDE
--- NOTE | 2020-04-13 03:10 | NUR ---
REMOVED 3L CLEAR URINE FROM [facility] BAG AT THIS TIME. SONYAD MADE AWARE.
[2020-04-13 03:59] VITALS: BP 120/78
== END 2020-04-13 03:59 | disposition home or self-care (01) ==
LOC: MED 00:30
DX: R33.9 Retention of urine, unspecified (principal); N93.9 Abnormal uterine and vaginal bleeding, unspecified; E11.9 Type 2 diabetes mellitus without complications; Z79.899 Other long term (current) drug therapy
CPT/HCPCS: 36415; 51702; 76856; 80053; 81001; 85025; 87086; 93976; 99284; Q0092

== ENCOUNTER 2020-06-11 09:57 | Day surgery (SDC) | payer OTHER, SELFPAY ==
[~2020-06-11] VITALS: Ht 157.5 cm; Wt 99.8 kg
[2020-06-11] MEDS ORDERED: fentaNYL citrate 0.05 MG/ML VIAL ONE (11:15)
[2020-06-11] MEDS ORDERED: BUPIVACAINE-MPF/EPI 0.25% 10 ML VIAL INJ ONE (11:15)
[2020-06-11] MEDS ORDERED: ONDANSETRON 4 MG/2 ML VIAL ONE (11:15)
[2020-06-11] MEDS ORDERED: PROPOFOL 200 MG/20 ML VIAL IV ONE (11:15)
[2020-06-11] MEDS ORDERED: ROCURONIUM 50 MG/5 ML VIAL IV ONE (11:15)
[2020-06-11] MEDS ORDERED: KETOROLAC 30 MG/ML VIAL ONE (11:15)
[2020-06-11] MEDS ORDERED: DESFLURANE 240 ML BTL INH ONE (11:15)
[2020-06-11] MEDS ORDERED: DEXAMETHASONE 4 MG/ML VIAL ONE (11:15)
[2020-06-11] MEDS ORDERED: SUCCINYLCHOLINE CHLORIDE 200 MG/10 ML VIAL IVP ONE (11:15)
[2020-06-11] MEDS ORDERED: ONDANSETRON 4 MG/2 ML VIAL IVP PRN (13:15)
[2020-06-11] MEDS ORDERED: HYDROmorphone PFS 2 MG/ML SYR ONE (13:15)
[2020-06-11] MEDS: HYDROmorphone 1 MG/ML AMP IVP PRN ×3 (13:17→13:38)
[2020-06-11] MEDS ORDERED: KETOROLAC 30 MG/ML VIAL IVP SCH (13:45)
[2020-06-11] MEDS ORDERED: oxyCODONE/APAP 5/325 MG 1 TAB TAB PO PRN (13:45)
== END 2020-06-11 15:05 | disposition home or self-care (01) ==
LOC: MOR 09:57 → MFCC 09:59 → MOR 15:05
PROVIDERS: ATTEND Obstetrics & Gynecology
DX: Z30.2 Encounter for sterilization (principal); Z79.899 Other long term (current) drug therapy; Z20.828 Contact with and (suspected) exposure to other viral communicable diseases
CPT/HCPCS: 36415; 58661; 81025; 86886; 86900; 86901; J0330; J1100; J1170; J1885; J2405; J2704; J3010; J3490; U0003

== ENCOUNTER 2021-02-07 20:23 | Emergency (ER) | payer OTHER, SELFPAY ==
[~2021-02-07] VITALS: Ht 157.5 cm; Wt 99.8 kg
[2021-02-07 20:55] VITALS: BP 117/85
--- NOTE | 2021-02-07 20:55 | NUR ---
TO TENT AMBULATORY
[2021-02-07] MEDS ORDERED: ACETAMINOPHEN 325 MG TAB PO ONE (22:25)
[2021-02-07] MEDS ORDERED: ONDANSETRON 4 MG ODT PO ONE (22:25)
--- NOTE | 2021-02-07 22:40 | NUR ---
MEDICATED PER ERMDS ORDER TOLERATED WELL.
--- NOTE | 2021-02-08 00:53 | NUR ---
ATTEMPTED TO COLLECT PCR, RAPID COVID, STREP SWABS. PT NOT FOUND IN TENT, CAR, OR LOBBY. DR. VALLADARES NOTIFIED.
--- NOTE | 2021-02-08 01:05 | NUR ---
ATTEMPTED 2ND CALL TO SWAB PATIENT WITH NO ANSWER. PATIENT ELOPED FROM FACILITY. DISCHARGE INSTRUCTIONS NOT GIVEN TO PATIENT. DR. VALLADARES NOTIFIED.
== END 2021-02-08 00:53 | disposition left against medical advice (07) ==
LOC: MED 20:23
DX: B34.9 Viral infection, unspecified (principal); R51.9 Headache, unspecified; R11.2 Nausea with vomiting, unspecified
CPT/HCPCS: 99283; Q0162